=== PATIENT | female | born 1980 | race Caucasian/White ===

== ENCOUNTER → 2019-03-04 | Outpatient (REF) ==
--- NOTE | 2019-03-04 15:27 | Diagnostic Imaging Report ---
Indication: Right 3rd finger injury AP, oblique and lateral views of the right 3rd finger are obtained. FINDINGS: No acute fracture or dislocation is identified. No abnormal lytic or sclerotic focus is seen, and there is no radiopaque foreign body. IMPRESSION: No acute abnormality. Dictated by: Dictated on workstation # [id number]
== END | disposition home or self-care (01) ==
LOC: OCC 15:09
PROVIDERS: ATTEND Nurse Practitioner Family
CPT/HCPCS: 73140